=== PATIENT | male | born 1945 | race Caucasian/White ===

== ENCOUNTER 2018-11-08 01:54 | Outpatient (CLI) | payer MEDICARE ==
[~2018-11-08 01:54] MED LIST: ALLO100T PO; CLOP75TA35 PO; CYAN100061 IM; ESOM40CA PO; FISH1CAP15 PO; METO-539 PO; OMEP40CA37 PO; OXYB5TAB82 PO; ROSU5TAB4 PO; SERT25TA PO; TRAM50TA2 PO; ZOLP10TA5 PO
== END 2018-11-08 23:59 | disposition home or self-care (01) ==
LOC: DIABETIC 01:54
PROVIDERS: ATTEND Internal Medicine Gastroenterology
DX: R63.4 Abnormal weight loss (principal); K91.89 Other postprocedural complications and disorders of digestive system; K59.1 Functional diarrhea; K91.1 Postgastric surgery syndromes; Z79.899 Other long term (current) drug therapy; Z68.24 Body mass index [BMI] 24.0-24.9, adult
CPT/HCPCS: 97802

== ENCOUNTER 2018-12-10 04:32 | Outpatient (CLI) | payer MEDICARE | END 2018-12-10 23:59 | disposition home or self-care (01) | LOC: DIABETIC 04:32 | PROVIDERS: ATTEND Internal Medicine Gastroenterology | DX: Z71.3 Dietary counseling and surveillance (principal); K91.1 Postgastric surgery syndromes; R63.4 Abnormal weight loss | CPT/HCPCS: 97802 ==

== ENCOUNTER 2020-04-22 06:59 | Day surgery (SDC) | payer MEDICARE, OTHER ==
[~2020-04-22] VITALS: Ht 167.6 cm; Wt 70.5 kg
[~2020-04-22 06:59] MED LIST changes: +OMEP40CA13 PO; -OMEP40CA37 PO
[2020-04-22 07:08] VITALS: BP 136/62
[2020-04-22] MEDS ORDERED: MIDAZolam 5mg/5ml vial ONE (07:16)
[2020-04-22] MEDS ORDERED: LIDOcaine Viscous 15ml cup ONE (07:16)
[2020-04-22] MEDS ORDERED: fentaNYL/PF 50MCG/1 ML 2ML syringe ONE (07:16)
[2020-04-22] MEDS ORDERED: PRAV10TA39 PO (07:41)
[2020-04-22] MEDS ORDERED: CHOL400T57 PO (07:42)
[2020-04-22] MEDS ORDERED: MULT-1085 PO (07:42)
[2020-04-22] MEDS ORDERED: ONDA4TAB6 PO (07:43)
[2020-04-22] MEDS ORDERED: ASPI-1265 PO (07:47)
[2020-04-22 08:12] VITALS: BP 133/68
[2020-04-22 08:23] VITALS: BP 109/56
[2020-04-22 08:32] VITALS: BP 109/61
[2020-04-22 08:42] VITALS: BP 106/57
== END 2020-04-22 09:12 | disposition home or self-care (01) ==
LOC: MERGE 06:59 → GI LAB 06:59
PROVIDERS: ATTEND Internal Medicine Gastroenterology
DX: R13.10 Dysphagia, unspecified (principal); R11.2 Nausea with vomiting, unspecified; K22.5 Diverticulum of esophagus, acquired; Z98.890 Other specified postprocedural states
CPT/HCPCS: 43249; C1726; G0500; J2250; J3010; J7040; 99152; A4620

== ENCOUNTER 2021-02-19 16:47 | Emergency (ER) | payer MEDICARE, OTHER ==
[~2021-02-19] VITALS: Ht 167.6 cm; Wt 73.0 kg
[~2021-02-19 16:47] MED LIST changes: +ASPI-1265 PO; +CHOL400T57 PO; +CLOP75TA34 PO; -CLOP75TA35 PO; -ESOM40CA PO; +MULT-1085 PO; +ONDA4TAB6 PO; -OXYB5TAB82 PO; +PRAV10TA39 PO; -SERT25TA PO; -TRAM50TA2 PO
--- NOTE | 2021-02-19 17:57 | NUR ---
VASCULAR TUDY DONE
[2021-02-19 18:03] LABS: ALANINE AMINOTRANSFERASE 22 U/L (12-78); ALBUMIN 3.7 G/DL (3.4-5.0); ALBUMIN/GLOBULIN RATIO 1.3 (1.1-1.5); ALKALINE PHOSPHATASE 97 IU/L (46-116); ANION GAP 8 (8-16); ASPARTATE AMINO TRANSFERASE 20 U/L (10-37); BILIRUBIN,TOTAL 0.6 MG/DL (0.1-1.0); BLOOD UREA NITROGEN 23 MG/DL (7-18); BUN/CREATININE RATIO 20.4 (5.4-32.0); CALCIUM 8.8 MG/DL (8.5-10.1); CHLORIDE 107 MMOL/L (99-107); CREATININE 1.13 MG/DL (0.60-1.10); GLUCOSE 108 MG/DL (70-104); POTASSIUM 4.5 MMOL/L (3.5-5.1); SODIUM 143 MMOL/L (135-145); TOTAL CARBON DIOXIDE 28.5 MMOL/L (24-32); TOTAL PROTEIN 6.6 G/DL (6.4-8.2); eGFR 63 ML/MIN
[2021-02-19 18:10] LABS: BASOPHILS % (AUTO) 0.8 % (0-1); EOSINOPHILS # (AUTO) 0.3 X10'3 (0-0.9); EOSINOPHILS % (AUTO) 5.8 % (0-6); HEMATOCRIT 37.2 % (42.0-52.0); HEMOGLOBIN 12.4 g/dl (14.0-17.9); LYMPHOCYTES # (AUTO) 1.4 X10'3 (1.1-4.8); LYMPHOCYTES % (AUTO) 26.4 % (21-51); MEAN CORPUSCULAR HEMOGLOBIN 31.7 PG (27.0-31.0); MEAN CORPUSCULAR HGB CONC 33.5 g/dL (33.0-36.5); MEAN CORPUSCULAR VOLUME 94.7 FL (78-98); MEAN PLATELET VOLUME 7.8 FL (7.4-10.4); MONOCYTES # (AUTO) 0.3 X10'3 (0-0.9); MONOCYTES % (AUTO) 6.2 % (2-12); NEUTROPHILS # (AUTO) 3.2 X10'3 (1.8-7.7); NEUTROPHILS % (AUTO) 60.8 % (42-75); PLATELET COUNT 148 X10'3 (140-440); RED BLOOD COUNT 3.93 X10'6 (4.70-6.10); RED CELL DISTRIBUTION WIDTH 14.9 % (11.5-14.5); WHITE BLOOD COUNT 5.2 X10'3 (4.5-11.0)
[2021-02-19 18:39] VITALS: BP 116/62
== END 2021-02-19 18:41 | disposition home or self-care (01) ==
LOC: ER 16:47
DX: M79.661 Pain in right lower leg (principal); I25.10 Atherosclerotic heart disease of native coronary artery without angina pectoris; K21.9 Gastro-esophageal reflux disease without esophagitis; Z87.891 Personal history of nicotine dependence; Z88.5 Allergy status to narcotic agent; Z91.013 Allergy to seafood; Z79.82 Long term (current) use of aspirin; Z79.899 Other long term (current) drug therapy
CPT/HCPCS: 36415; 80053; 85025; 93971; 99284

== ENCOUNTER 2023-06-28 15:12 | Outpatient (CLI) | payer MEDICARE, OTHER ==
[~2023-06-28 15:12] MED LIST changes: -OMEP40CA13 PO; +OMEP40CA21 PO
== END 2023-06-28 23:59 | disposition home or self-care (01) ==
LOC: RAD 15:12
PROVIDERS: ATTEND Nurse Practitioner Family
DX: R13.14 Dysphagia, pharyngoesophageal phase (principal)
CPT/HCPCS: 74230